=== PATIENT | female | born 1975 ===

== ENCOUNTER 2018-03-13 19:59 | Emergency (ER) | payer OTHER ==
--- NOTE | 2018-03-13 20:48 | UC ---
Ear Complaint HPI - HPI Summary HPI Summary: 42 year old female with no significant pmhx here with right ear pain for two weeks. patient reports she was treated with abx and completed it 03/11. She reports the pain has subsided but the issue of "clogged ear" was not resolved, prompting her to come to the ED. No n/v/d or any other complaints. - History of Current Complaint Chief Complaint: UCEar Stated Complaint: EAR PAIN Time Seen by Provider: 03/13/18 20:09 Hx Last Menstrual Period: 02/04/18 Onset/Duration: Gradual Onset, Lasting Weeks Pain Intensity: 0 Aggravating Factors: Nothing Alleviating Factors: Nothing - Allergies/Home Medications Allergies/Adverse Reactions: Allergies Allergy/AdvReac Type Severity Reaction Status Date / Time No Known Allergies Allergy Verified 03/13/18 20:13 Home Medications: Home Medications NK [No Home Medications Reported] 03/13/18 [History Confirmed 03/13/18] PMH/Surg Hx/FS Hx/Imm Hx Previously Healthy: No - Surgical History Surgical History: Yes Surgery Procedure, Year, and Place: collar bone surgery, R shoulder surgery, wisdom teeth - Social History Alcohol Use: None Substance Use Type: None Smoking Status (MU): Never Smoked Tobacco Review of Systems Constitutional: Negative Skin: Negative Eyes: Negative ENT: Ear Ache Respiratory: Negative Cardiovascular: Negative Gastrointestinal: Negative Genitourinary: Negative Motor: Negative Neurovascular: Negative Musculoskeletal: Negative Neurological: Negative Psychological: Negative All Other Systems Reviewed And Are Negative: Yes Physical Exam Triage Information Reviewed: Yes Appearance: Well-Appearing, No Pain Distress Vital Signs: Initial Vital Signs Temp 36.7 C 03/13/18 20:15 Pulse 57 03/13/18 20:15 Resp 16 03/13/18 20:15 BP 106/72 03/13/18 20:15 Pulse Ox 100 03/13/18 20:15 ENT: Positive: TMs normal, Other - mild cerumen in right canal left wnl Dental Exam: Normal Respiratory Exam: Normal Cardiovascular: Positive: No Murmur Abdominal Exam: Normal Musculoskeletal Exam: Normal Skin Exam: Normal Ear Complaint Course/Dx - Differential Dx/Diagnosis Differential Diagnosis/HQI/PQRI: Cerumen Impaction, Otitis Media, Other Provider Diagnoses: Cerumen impaction Discharge - Sign-Out/Discharge Documenting (check all that apply): Discharge/Admit/Transfer - Discharge Plan Condition: Good Disposition: HOME Patient Education Materials: Bette Stuartion (ED) Referrals: No Primary Care Phys,NOPCP [Primary Care Provider] - - Billing Disposition and Condition Condition: GOOD Disposition: HOME
== END 2018-03-13 21:30 | disposition home or self-care (01) ==
LOC: UCEAST 19:59
DX: H61.21 Impacted cerumen, right ear (principal)
CPT/HCPCS: 99202; G0463